=== PATIENT | female | born 1945 | race Caucasian/White ===

== ENCOUNTER 2017-04-14 08:00 | Outpatient (CLI) | payer OTHER ==
[2017-04-14 13:18] LABS: ALBUMIN/GLOBULIN RATIO 1.1 (1.0-2.2); BILIRUBIN,TOTAL 0.5 mg/dL (0.2-1.0); BUN - BLOOD UREA NITROGEN 28 mg/dL (6-20); CALCIUM 11.7 mg/dL (8.5-10.3); CARBON DIOXIDE - CO2 26 mmol/L (21-32); CHLORIDE 101 mmol/L (101-111); CHOL/HDL RATIO 5.5 (<4.4); CHOLESTEROL 240 mg/dL; CREATININE 0.8 mg/dL (0.4-1.0); GFR - MDRD 71 (>89); GLUCOSE 126 mg/dL (70-100); HDL CHOLESTEROL 44 mg/dL; SODIUM 137 mmol/L (135-145); TOTAL PROTEIN 7.4 g/dL (6.7-8.2); TRIGLYCERIDES 446 mg/dL
[2017-04-14 13:38] LABS: LDL CHOLESTEROL,DIRECT 133 mg/dL
[2017-04-14 13:50] LABS: HEMOGLOBIN A1C 0.61 g/dL
== END 2017-04-14 08:01 | disposition home or self-care (01) ==
LOC: LAB.WCP 08:00
PROVIDERS: ATTEND Physician Assistant Medical
DX: E78.5 Hyperlipidemia, unspecified (principal); E11.9 Type 2 diabetes mellitus without complications; E03.9 Hypothyroidism, unspecified; Z79.899 Other long term (current) drug therapy
CPT/HCPCS: 36415; 80053; 80061; 83036; 84443

== ENCOUNTER 2017-04-17 11:25 | Outpatient (CLI) | payer OTHER | END 2017-04-17 11:26 | disposition home or self-care (01) | LOC: LAB.WCP 11:25 | PROVIDERS: ATTEND Physician Assistant Medical | DX: Z71.9 Counseling, unspecified (principal) | CPT/HCPCS: 36415; 86803 ==

== ENCOUNTER 2017-04-30 11:09 | Outpatient (CLI) | payer OTHER ==
[2017-04-30 20:54] LABS: THYROID STIMULATING HORMONE 2.87 uIU/mL (0.34-5.60)
== END 2017-04-30 11:10 | disposition home or self-care (01) ==
LOC: LAB.WCP 11:09
PROVIDERS: ATTEND Physician Assistant Medical
DX: E83.52 Hypercalcemia (principal); E03.9 Hypothyroidism, unspecified
CPT/HCPCS: 36415; 82306; 82310; 83970; 84439; 84443; 84481

== ENCOUNTER 2017-07-20 10:39 | Outpatient (CLI) | payer MEDICARE, OTHER ==
[2017-07-20 20:17] LABS: CALCIUM 10.3 mg/dL (8.5-10.3); PHOSPHORUS 2.4 mg/dL (2.5-4.6)
== END 2017-07-20 10:40 | disposition home or self-care (01) ==
LOC: LAB.WCP 10:39
PROVIDERS: ATTEND Internal Medicine Endocrinology, Diabetes & Metabolism
DX: E83.52 Hypercalcemia (principal); E55.9 Vitamin D deficiency, unspecified
CPT/HCPCS: 36415; 82306; 82310; 83970; 84100

== ENCOUNTER 2017-07-22 08:00 | Outpatient (CLI) | payer MEDICARE | END 2017-07-22 08:01 | disposition home or self-care (01) | LOC: LAB.WCP 08:00 | PROVIDERS: ATTEND Internal Medicine Endocrinology, Diabetes & Metabolism | DX: E55.9 Vitamin D deficiency, unspecified (principal); E83.52 Hypercalcemia | CPT/HCPCS: 82340; 82570 ==

== ENCOUNTER 2017-07-31 13:01 | Outpatient (CLI) | payer MEDICARE ==
--- NOTE | 2017-08-03 11:16 | DEXA Report ---
DEXA SCAN: 07/31/2017 CLINICAL INDICATION: Postmenopausal. TECHNIQUE: Dual energy x-ray absorptiometry (DXA) was performed on a [employer] system. Regions measured are the AP spine, femoral neck, and, if needed, forearm. COMPARISON: None. In accordance with the International Society for Clinical Densitometry (ISCD) guidelines, data from previous exams may be reanalyzed using current recommendations and techniques. This is done to allow a more accurate basis for comparison with the current study. FINDINGS The data for the lumbar spine is as follows: REGION BMD (g/cm/cm) T-SCORE Z-SCORE L1 1.063 -0.6 0.5 L2 1.143 -0.5 0.6 L3 1.224 0.2 1.2 L4 1.126 -0.6 0.4 TOTAL 1.139 -0.3 0.7 NOTE: All evaluable vertebrae are used for classification. The data for the hip is as follows: REGION BMD (g/cm/cm) T-SCORE Z-SCORE Neck 0.914 -0.9 0.4 TOTAL 0.982 -0.2 0.8 NOTE: The femoral neck or total proximal femur, whichever is lowest, is used for classification. IMPRESSION: THE WHO CLASSIFICATION BASED ON THE INTERNATIONAL REFERENCE STANDARD IS NORMAL. THE FRACTURE RISK IS NOT INCREASED. RECOMMENDATION: Patients with diagnosis of osteoporosis or osteopenia should have regular bone mineral density assessment. For those eligible for Medicare, routine testing is allowed once every 2 years. Testing frequency can be increased for patients who have rapidly progressing disease or for those who are receiving medical therapy to restore bone mass. COMMENT: World Health Organization (WHO) definitions for osteoporosis and osteopenia: NORMAL BMD: T-score at -1.0 or higher, fracture risk is low. OSTEOPENIA BMD: T-score between -1.0 and -2.5, fracture risk is increased. OSTEOPOROSIS BMD: T-score at -2.5 or lower, fracture risk high. National Osteoporosis Foundation recommends: 1. Obtain adequate dietary calcium (at least 1200 mg per day) and vitamin D (400 -800 international units per day). 2. Participate, as appropriate, in regular weightbearing and muscle- strengthening exercise. 3. Avoid tobacco use and reduce alcohol and caffeine intake. 4. For more detailed information see the website at www.NOF.org. MTDD
== END 2017-07-31 13:02 | disposition home or self-care (01) ==
LOC: DI 13:01
PROVIDERS: ATTEND Family Medicine
DX: Z13.820 Encounter for screening for osteoporosis (principal); Z78.0 Asymptomatic menopausal state
CPT/HCPCS: 77080

== ENCOUNTER 2017-09-29 08:00 | Outpatient (CLI) | payer MEDICARE ==
[2017-09-29 13:19] LABS: ALBUMIN/GLOBULIN RATIO 1.1 (1.0-2.2); BILIRUBIN,TOTAL 0.6 mg/dL (0.2-1.0); BUN - BLOOD UREA NITROGEN 17 mg/dL (6-20); CARBON DIOXIDE - CO2 24 mmol/L (21-32); CHLORIDE 107 mmol/L (101-111); CHOL/HDL RATIO 3.7 (<4.4); CHOLESTEROL 140 mg/dL; CREATININE 0.6 mg/dL (0.4-1.0); GFR - MDRD 99 (>89); GLUCOSE 124 mg/dL (70-100); HDL CHOLESTEROL 38 mg/dL; LDL/HDL RATIO 1.4 (<4.4); POTASSIUM 3.8 mmol/L (3.5-5.0); SODIUM 137 mmol/L (135-145); TRIGLYCERIDES 239 mg/dL; VLDL CHOLESTEROL 48 mg/dL
[2017-09-29 13:24] LABS: HEMOGLOBIN A1C 0.69 g/dL
== END 2017-09-29 08:01 | disposition home or self-care (01) ==
LOC: LAB.WCP 08:00
PROVIDERS: ATTEND Physician Assistant Medical
DX: E78.5 Hyperlipidemia, unspecified (principal); E11.9 Type 2 diabetes mellitus without complications; Z51.81 Encounter for therapeutic drug level monitoring; Z79.899 Other long term (current) drug therapy
CPT/HCPCS: 36415; 80053; 80061; 83036

== ENCOUNTER 2017-10-09 12:56 | Outpatient (CLI) | payer MEDICARE | END 2017-10-09 12:57 | disposition home or self-care (01) | LOC: LAB.WCP 12:56 | PROVIDERS: ATTEND Physician Assistant Medical | DX: E03.9 Hypothyroidism, unspecified (principal) | CPT/HCPCS: 36415; 84443 ==

== ENCOUNTER 2018-02-01 09:17 | Outpatient (CLI) | payer MEDICARE ==
[2018-02-01 12:40] LABS: HEMOGLOBIN A1C 0.65 g/dL; HEMOGLOBIN A1C % 6.1 % (4.6-6.2)
[2018-02-01 12:43] LABS: ALBUMIN 4.2 g/dL (3.2-5.5); ALBUMIN/GLOBULIN RATIO 1.2 (1.0-2.2); ALKALINE PHOSPHATASE 83 IU/L (42-121); ALT ALANINE AMINOTRANSFERASE 26 IU/L (10-60); AST ASPARTATE AMINOTRANSFERASE 26 IU/L (10-42); BILIRUBIN,TOTAL 0.7 mg/dL (0.2-1.0); BUN - BLOOD UREA NITROGEN 13 mg/dL (6-20); CARBON DIOXIDE - CO2 23 mmol/L (21-32); CHLORIDE 102 mmol/L (101-111); CHOL/HDL RATIO 3.2 (<4.4); CHOLESTEROL 144 mg/dL; CREATININE 0.5 mg/dL (0.4-1.0); GFR - MDRD 122 (>89); GLUCOSE 124 mg/dL (70-100); HDL CHOLESTEROL 45 mg/dL; LDL CHOLESTEROL,CALCULATED 55 mg/dL; LDL/HDL RATIO 1.2 (<4.4); SODIUM 135 mmol/L (135-145); TOTAL PROTEIN 7.6 g/dL (6.7-8.2); VLDL CHOLESTEROL 44 mg/dL
== END 2018-02-01 09:18 | disposition home or self-care (01) ==
LOC: LAB.WCP 09:17
PROVIDERS: ATTEND Family Medicine
DX: E78.5 Hyperlipidemia, unspecified (principal); E11.9 Type 2 diabetes mellitus without complications; Z51.81 Encounter for therapeutic drug level monitoring
CPT/HCPCS: 36415; 80053; 80061; 83036; 83721

== ENCOUNTER 2018-06-09 08:00 | Outpatient (CLI) | payer MEDICARE ==
[2018-06-09 13:25] LABS: BUN - BLOOD UREA NITROGEN 14 mg/dL (6-20); CARBON DIOXIDE - CO2 26 mmol/L (21-32); CHLORIDE 103 mmol/L (101-111); CHOL/HDL RATIO 3.4 (<4.4); CHOLESTEROL 140 mg/dL; CREATININE 0.7 mg/dL (0.4-1.0); GFR - MDRD 82 (>89); GLUCOSE 124 mg/dL (70-100); HDL CHOLESTEROL 41 mg/dL; LDL CHOLESTEROL,CALCULATED 58 mg/dL; LDL/HDL RATIO 1.4 (<4.4); SODIUM 137 mmol/L (135-145); VLDL CHOLESTEROL 41 mg/dL
[2018-06-09 13:27] LABS: HB2 TOTAL 14.2 g/dL; HEMOGLOBIN A1C 0.59 g/dL
== END 2018-06-09 08:01 | disposition home or self-care (01) ==
LOC: LAB.WCP 08:00
PROVIDERS: ATTEND Physician Assistant Medical
DX: E11.9 Type 2 diabetes mellitus without complications (principal); E78.5 Hyperlipidemia, unspecified; R53.83 Other fatigue
CPT/HCPCS: 36415; 80048; 80061; 83036; 83721; 84443

== ENCOUNTER 2018-07-21 13:08 | Outpatient (CLI) | payer MEDICARE ==
--- NOTE | 2018-07-22 15:58 | Mammography Report ---
Reason: SCREENING MAMMO Procedure Date: 07/21/2018 Accession Number: [id number] / [id number] Procedure: JAZMIN - Screening Mammo Dig Bilat CPT Code: FULL RESULT: EXAM: Screening Mammo Dig Bilat DATE: 07/21/2018 1:45 PM CLINICAL HISTORY: Screening mammogram TECHNIQUE: Bilateral CC and MLO views were obtained. COMPARISON: Mammogram 08/06/2016 FINDINGS: There are scattered fibroglandular densities. There are benign-appearing lymph nodes. No suspicious masses, clustered microcalcifications, or regions of architectural distortion are identified. IMPRESSION: Benign findings RECOMMENDATION: Routine annual screening unless otherwise clinically indicated. BIRADS CATEGORY 2: Benign findings STANDARD QUALIFYING STATEMENTS: 1. This examination was reviewed with the aid of Computer-Aided Detection (CAD). 2. A negative or benign imaging report should not delay biopsy if clinically suspicious findings are present. Consider surgical consultation if warrented. More than 5% of cancers are not identified by imaging. 3. Dense breasts may obscure an underlying neoplasm.
== END 2018-07-21 13:09 | disposition home or self-care (01) ==
LOC: DI 13:08
PROVIDERS: ATTEND Radiology Diagnostic Radiology
DX: Z12.31 Encounter for screening mammogram for malignant neoplasm of breast (principal)
CPT/HCPCS: 77067

== ENCOUNTER 2018-12-15 08:00 | Outpatient (CLI) | payer MEDICARE ==
[2018-12-15 12:49] LABS: ALBUMIN 3.7 g/dL (3.2-5.5); ALBUMIN/GLOBULIN RATIO 1.1 (1.0-2.2); ALKALINE PHOSPHATASE 91 IU/L (42-121); ALT ALANINE AMINOTRANSFERASE 19 IU/L (10-60); AST ASPARTATE AMINOTRANSFERASE 19 IU/L (10-42); BILIRUBIN,TOTAL 0.9 mg/dL (0.2-1.0); BUN - BLOOD UREA NITROGEN 14 mg/dL (6-20); CARBON DIOXIDE - CO2 26 mmol/L (21-32); CHLORIDE 102 mmol/L (101-111); CHOL/HDL RATIO 3.7 (<4.4); CHOLESTEROL 148 mg/dL; CREATININE 0.7 mg/dL (0.4-1.0); GFR - MDRD 82 (>89); GLUCOSE 128 mg/dL (70-100); HDL CHOLESTEROL 40 mg/dL; LDL CHOLESTEROL,CALCULATED 73 mg/dL; LDL/HDL RATIO 1.8 (<4.4); SODIUM 138 mmol/L (135-145); TOTAL PROTEIN 7.2 g/dL (6.7-8.2); VLDL CHOLESTEROL 35 mg/dL
[2018-12-15 12:53] LABS: HB2 TOTAL 14.6 g/dL; HEMOGLOBIN A1C 0.56 g/dL; HEMOGLOBIN A1C % 5.7 % (4.6-6.2)
== END 2018-12-15 23:59 | disposition home or self-care (01) ==
LOC: LAB.WCP 08:00
PROVIDERS: ATTEND Physician Assistant Medical
DX: E78.5 Hyperlipidemia, unspecified (principal); E11.9 Type 2 diabetes mellitus without complications; E03.9 Hypothyroidism, unspecified
CPT/HCPCS: 36415; 80053; 80061; 83036; 83721; 84443

== ENCOUNTER 2019-06-29 08:00 | Outpatient (CLI) | payer MEDICARE ==
[2019-06-29 12:00] LABS: BASOPHILS % (AUTO) 0.4 %; EOSINOPHILS # (AUTO) 0.1 10^3/uL (0.0-0.7); EOSINOPHILS % (AUTO) 1.5 %; LYMPHOCYTES # (AUTO) 2.4 10^3/uL (1.5-3.5); LYMPHOCYTES % (AUTO) 34.5 %; MEAN CORPUSCULAR HEMOGLOBIN 29.4 pg (27.0-31.0); MEAN CORPUSCULAR HGB CONC 32.1 g/dL (32.0-36.0); MEAN CORPUSCULAR VOLUME 91.4 fL (81.0-99.0); MEAN PLATELET VOLUME 10.5 fL (7.9-10.8); MONOCYTES # (AUTO) 0.6 10^3/uL (0.0-1.0); MONOCYTES % (AUTO) 8.7 %; NEUTROPHILS # (AUTO) 3.7 10^3/uL (1.5-6.6); NEUTROPHILS % (AUTO) 54.6 %; PLT - PLATELET COUNT 285 10^3/uL (130-450); RED BLOOD COUNT 4.77 10^6/uL (4.20-5.40); RED CELL DISTRIBUTION WIDTH 12.6 % (12.0-15.0); WHITE BLOOD COUNT 6.9 x10^3/uL (4.8-10.8)
[2019-06-29 12:28] LABS: HB2 TOTAL 15.1 g/dL; HEMOGLOBIN A1C 0.63 g/dL
[2019-06-29 12:43] LABS: ALBUMIN 4.1 g/dL (3.2-5.5); ALBUMIN/GLOBULIN RATIO 1.2 (1.0-2.2); ALKALINE PHOSPHATASE 90 IU/L (42-121); ALT ALANINE AMINOTRANSFERASE 30 IU/L (10-60); AST ASPARTATE AMINOTRANSFERASE 25 IU/L (10-42); BILIRUBIN,TOTAL 0.8 mg/dL (0.2-1.0); BUN - BLOOD UREA NITROGEN 21 mg/dL (6-20); CARBON DIOXIDE - CO2 23 mmol/L (21-32); CHLORIDE 103 mmol/L (101-111); CHOL/HDL RATIO 3.6 (<4.4); CHOLESTEROL 152 mg/dL; CREATININE 0.6 mg/dL (0.4-1.0); GFR - MDRD 98 (>89); GLUCOSE 138 mg/dL (70-100); HDL CHOLESTEROL 42 mg/dL; LDL CHOLESTEROL,CALCULATED 68 mg/dL; LDL/HDL RATIO 1.6 (<4.4); SODIUM 136 mmol/L (135-145); TOTAL PROTEIN 7.6 g/dL (6.7-8.2); VLDL CHOLESTEROL 42 mg/dL
== END 2019-06-29 23:59 | disposition home or self-care (01) ==
LOC: LAB.WCP 08:00
PROVIDERS: ATTEND Physician Assistant Medical
DX: E11.9 Type 2 diabetes mellitus without complications (principal); E78.5 Hyperlipidemia, unspecified; E03.9 Hypothyroidism, unspecified
CPT/HCPCS: 36415; 80053; 80061; 83036; 83721; 84443; 85025

== ENCOUNTER 2019-09-05 11:03 | Outpatient (CLI) | payer MEDICARE ==
--- NOTE | 2019-09-05 13:17 | Mammography Report ---
Reason: SCREENING MAMMO Procedure Date: 09/05/2019 Accession Number: [id number] / [id number] Procedure: JAZMIN - Screening Mammo w/Nayan CPT Code: FULL RESULT: EXAM: Screening Mammo w/Nayan DATE: 09/05/2019 12:03 PM CLINICAL HISTORY: Routine screening TECHNIQUE: (B) - Bilateral CC and MLO views were obtained. COMPARISON: 07/21/2018, 08/06/2016, 07/19/2015, 04/11/2014, 08/09/2012, 07/29/2012 PARENCHYMAL PATTERN: (F) - The breasts demonstrate diffuse fatty replacement bilaterally. FINDINGS: No significant interval change. There are no suspicious masses, calcifications, or areas of distortion. Several tiny nodular densities right breast appears stable. IMPRESSION: Negative examination. BI-RADS category 1. RECOMMENDATION: (ANNUAL) - Recommend routine annual screening mammography. BI-RADS CATEGORY: (1) - Negative. STANDARD QUALIFYING STATEMENTS: 1. This examination was not reviewed with the aid of Computer-Aided Detection (CAD). 2. A negative or benign imaging report should not preclude biopsy if clinically suspicious findings are present. 3. Dense breasts may obscure an underlying neoplasm. 4. This examination was reviewed with the aid of 3D breast imaging (tomosynthesis).
== END 2019-09-05 11:04 | disposition home or self-care (01) ==
LOC: DI 11:03
DX: Z12.31 Encounter for screening mammogram for malignant neoplasm of breast (principal)
CPT/HCPCS: 77063; 77067

== ENCOUNTER 2020-01-05 08:00 | Outpatient (CLI) | payer MEDICARE ==
[2020-01-05 12:42] LABS: CALCIUM 10.5 mg/dL (8.5-10.3); CREATININE 0.8 mg/dL (0.4-1.0); HB2 TOTAL 14.5 g/dL; HEMOGLOBIN A1C 0.63 g/dL; HEMOGLOBIN A1C % 6.1 % (4.6-6.2)
== END 2020-01-05 23:59 | disposition home or self-care (01) ==
LOC: LAB.WCP 08:00
PROVIDERS: ATTEND Physician Assistant Medical
DX: E11.9 Type 2 diabetes mellitus without complications (principal)
CPT/HCPCS: 36415; 80048; 83036

== ENCOUNTER 2020-07-04 10:46 | Outpatient (CLI) | payer MEDICARE ==
[2020-07-04 19:00] LABS: ALBUMIN 4.2 g/dL (3.2-5.5); ALBUMIN/GLOBULIN RATIO 1.3 (1.0-2.2); ALKALINE PHOSPHATASE 89 IU/L (42-121); ALT ALANINE AMINOTRANSFERASE 22 IU/L (10-60); AST ASPARTATE AMINOTRANSFERASE 20 IU/L (10-42); BUN - BLOOD UREA NITROGEN 16 mg/dL (6-20); CALCIUM 10.6 mg/dL (8.5-10.3); CARBON DIOXIDE - CO2 27 mmol/L (21-32); CHLORIDE 102 mmol/L (101-111); CHOL/HDL RATIO 3.4 (<4.4); CHOLESTEROL 162 mg/dL; CREATININE 0.6 mg/dL (0.4-1.0); GLUCOSE 114 mg/dL (70-100); HDL CHOLESTEROL 47 mg/dL; LDL CHOLESTEROL,CALCULATED 78 mg/dL; LDL/HDL RATIO 1.7 (<4.4); SODIUM 140 mmol/L (135-145); TOTAL PROTEIN 7.5 g/dL (6.7-8.2); VLDL CHOLESTEROL 37 mg/dL
[2020-07-04 19:05] LABS: HEMOGLOBIN A1c% 6.2 % (4.27-6.07)
== END 2020-07-04 23:59 | disposition home or self-care (01) ==
LOC: LAB.WCP 10:46
PROVIDERS: ATTEND Physician Assistant Medical
DX: E11.9 Type 2 diabetes mellitus without complications (principal)
CPT/HCPCS: 36415; 80053; 80061; 83036; 83721

== ENCOUNTER → 2020-07-18 | Outpatient (CLI) | payer MEDICARE ==
[2020-07-18 13:05] LABS: CREATININE,URINE 57.3 mg/dL; MICROALBUM/CREATININE RATIO,UR 12.2 ug/mg (<30.0); MICROALBUMIN,URINE 0.7 mg/dL (0-300.0)
== END ==
LOC: LAB.WCP 10:11
PROVIDERS: ATTEND Physician Assistant Medical
DX: E11.9 Type 2 diabetes mellitus without complications (principal)
CPT/HCPCS: 82043; 82570

== ENCOUNTER 2021-01-09 08:00 | Outpatient (CLI) | payer MEDICARE ==
[2021-01-09 12:42] LABS: CALCIUM 11.2 mg/dL (8.5-10.3); CREATININE 0.6 mg/dL (0.4-1.0); POTASSIUM 3.7 mmol/L (3.5-5.0)
[2021-01-09 12:47] LABS: ESTIMATED AVERAGE GLUCOSE 128 mg/dL (70-100); HEMOGLOBIN A1c% 6.1 % (4.27-6.07)
[2021-01-09 12:52] LABS: CREATININE,URINE 24.4 mg/dL; MICROALBUM/CREATININE RATIO,UR 16.4 ug/mg (<30.0); MICROALBUMIN,URINE 0.4 mg/dL (0-300.0)
== END 2021-01-09 23:59 | disposition home or self-care (01) ==
LOC: LAB.WCP 08:00
PROVIDERS: ATTEND Physician Assistant Medical
DX: E11.9 Type 2 diabetes mellitus without complications (principal)
CPT/HCPCS: 36415; 80048; 82043; 82570; 83036

== ENCOUNTER 2021-07-03 12:55 | Outpatient (CLI) | payer MEDICARE ==
--- NOTE | 2021-07-11 13:21 | Mammography Report ---
BILATERAL DIGITAL SCREENING MAMMOGRAM 3D/2D: 07/03/2021 CLINICAL: Routine screening. Comparison is made to exams dated: 09/05/2019 mammogram, 07/21/2018 mammogram, and 08/06/2016 mammogra m - [facility]. The tissue of both breasts is predominantly fatty. No significant masses, calcifications, or other findings are seen in either breast. There has been no significant interval change. IMPRESSION: NEGATIVE There is no mammographic evidence of malignancy. A 1 year screening mammogram is recommended. This exam was interpreted at Station ID: [id number]. NOTE: For mammograms, a report in lay terms will be sent to the patient. Approximately 15% of breast malignancies will not be visualized mammographically. In the management of a palpable breast mass, a negative mammogram must not discourage biopsy of a clinically suspicious lesion. Electronically Signed By: Courtney [email or web address]:07/10/2021 17:24:03 ACR BI-RADS Category 1: Negative 3341F PARENCHYMAL PATTERN: (F) - The breast(s) demonstrate(s) diffuse fatty replacement. BI-RADS CATEGORY: (1) - 1 RECOMMENDATION: (ANNUAL) - Recommend routine annual screening mammography. [id number] 1 year screening LATERALITY: (B)
== END 2021-07-03 12:56 | disposition home or self-care (01) ==
LOC: DI 12:55
DX: Z12.31 Encounter for screening mammogram for malignant neoplasm of breast (principal)

== ENCOUNTER 2021-07-16 08:36 | Outpatient (CLI) | payer MEDICARE ==
[2021-07-16 12:39] LABS: ALBUMIN 4.2 g/dL (3.2-5.5); ALBUMIN/GLOBULIN RATIO 1.3 (1.0-2.2); ALKALINE PHOSPHATASE 76 IU/L (42-121); ALT ALANINE AMINOTRANSFERASE 27 IU/L (10-60); AST ASPARTATE AMINOTRANSFERASE 25 IU/L (10-42); BILIRUBIN,TOTAL 0.8 mg/dL (0.2-1.0); BUN - BLOOD UREA NITROGEN 16 mg/dL (6-20); CALCIUM 10.5 mg/dL (8.5-10.3); CARBON DIOXIDE - CO2 24 mmol/L (21-32); CHLORIDE 107 mmol/L (101-111); CHOL/HDL RATIO 3.4 (<4.4); CHOLESTEROL 142 mg/dL; CREATININE 0.6 mg/dL (0.4-1.0); GFR - MDRD 98 (>89); GLUCOSE 144 mg/dL (70-100); HDL CHOLESTEROL 42 mg/dL; LDL CHOLESTEROL,CALCULATED 59 mg/dL; LDL/HDL RATIO 1.4 (<4.4); POTASSIUM 4.1 mmol/L (3.5-5.0); SODIUM 142 mmol/L (135-145); TOTAL PROTEIN 7.4 g/dL (6.7-8.2); TRIGLYCERIDES 203 mg/dL; VLDL CHOLESTEROL 41 mg/dL
[2021-07-16 12:55] LABS: ESTIMATED AVERAGE GLUCOSE 137 mg/dL (70-100); HEMOGLOBIN A1c% 6.4 % (4.27-6.07)
== END 2021-07-16 23:59 | disposition home or self-care (01) ==
LOC: LAB.WCP 08:36
PROVIDERS: ATTEND Physician Assistant Medical
DX: E11.9 Type 2 diabetes mellitus without complications (principal); E78.5 Hyperlipidemia, unspecified; I10 Essential (primary) hypertension
CPT/HCPCS: 36415; 80053; 80061; 83036; 83721

== ENCOUNTER 2021-11-14 08:00 | Outpatient (CLI) | payer MEDICARE ==
[2021-11-14 12:11] LABS: CALCIUM 10.9 mg/dL (8.5-10.3); CREATININE 0.7 mg/dL (0.4-1.0); POTASSIUM 3.8 mmol/L (3.5-5.0)
[2021-11-14 12:31] LABS: THYROID STIMULATING HORMONE 6.86 uIU/mL (0.34-5.60)
[2021-11-14 13:23] LABS: FREE T4 (FREE THYROXINE) 1.45 ng/dL (0.58-1.64)
[2021-11-14 14:37] LABS: ESTIMATED AVERAGE GLUCOSE 137 mg/dL (70-100); HEMOGLOBIN A1c% 6.4 % (4.27-6.07)
== END 2021-11-14 23:59 ==
LOC: LAB.WCP 08:00
PROVIDERS: ATTEND Physician Assistant Medical
DX: E11.9 Type 2 diabetes mellitus without complications (principal); E03.9 Hypothyroidism, unspecified
CPT/HCPCS: 36415; 80048; 83036; 84439; 84443

== ENCOUNTER 2021-12-20 11:50 | Outpatient (CLI) | payer MEDICARE ==
[2021-12-20 18:58] LABS: THYROID STIMULATING HORMONE 3.18 uIU/mL (0.34-5.60)
== END 2021-12-20 11:51 | disposition home or self-care (01) ==
LOC: LAB.N 11:50
PROVIDERS: ATTEND Physician Assistant Medical
DX: E03.9 Hypothyroidism, unspecified (principal)
CPT/HCPCS: 36415; 84443

== ENCOUNTER 2022-03-12 09:56 | Outpatient (CLI) | payer MEDICARE ==
[2022-03-12 12:24] LABS: ALBUMIN 4.1 g/dL (3.2-5.5); ALBUMIN/GLOBULIN RATIO 1.2 (1.0-2.2); ALKALINE PHOSPHATASE 97 IU/L (42-121); ALT ALANINE AMINOTRANSFERASE 21 IU/L (10-60); AST ASPARTATE AMINOTRANSFERASE 21 IU/L (10-42); BILIRUBIN,TOTAL 0.8 mg/dL (0.2-1.0); BUN - BLOOD UREA NITROGEN 21 mg/dL (6-20); CALCIUM 10.5 mg/dL (8.5-10.3); CARBON DIOXIDE - CO2 26 mmol/L (21-32); CHLORIDE 104 mmol/L (101-111); CHOLESTEROL 146 mg/dL; CREATININE 0.7 mg/dL (0.4-1.0); GFR - MDRD 82 (>89); GLUCOSE 149 mg/dL (70-100); HDL CHOLESTEROL 48 mg/dL; LDL CHOLESTEROL,CALCULATED 67 mg/dL; LDL/HDL RATIO 1.4 (<4.4); POTASSIUM 4.1 mmol/L (3.5-5.0); SODIUM 140 mmol/L (135-145); TOTAL PROTEIN 7.5 g/dL (6.7-8.2); TRIGLYCERIDES 155 mg/dL; VLDL CHOLESTEROL 31 mg/dL
[2022-03-12 13:03] LABS: ESTIMATED AVERAGE GLUCOSE 140 mg/dL (70-100); HEMOGLOBIN A1c% 6.5 % (4.27-6.07)
== END 2022-03-12 09:57 | disposition home or self-care (01) ==
LOC: LAB.N 09:56
PROVIDERS: ATTEND Physician Assistant Medical
DX: E11.9 Type 2 diabetes mellitus without complications (principal)
CPT/HCPCS: 36415; 80053; 80061; 83036; 83721

== ENCOUNTER 2022-08-12 15:19 | Outpatient (CLI) | payer MEDICARE ==
--- NOTE | 2022-08-14 10:22 | Mammography Report ---
BILATERAL DIGITAL SCREENING MAMMOGRAM 3D/2D: 08/12/2022 CLINICAL: Routine screening. Comparison is made to exams dated: 07/03/2021 mammogram, 09/05/2019 mammogram, 07/21/2018 mammogram, mammogram, and 07/19/2015 mammogram - [facility]. There are scattered areas of fibroglandular density in both breasts (category b / 25%-50% glandular t issue). No significant masses, calcifications, or other findings are seen in either breast. There has been no significant interval change. IMPRESSION: NEGATIVE There is no mammographic evidence of malignancy. A 1 year screening mammogram is recommended. Based on the Tyrer Cuzick model (a risk assessment model) the patients lifetime risk is 1.7% and her 10 year risk is 0.0%. According to the ACR, ACS, and NCCN guidelines, an annual breast MRI exam zoya g with mammogram is recommended if the patients lifetime risk is 20% or greater. This exam was interpreted at Station ID: [id number]. NOTE: For mammograms, a report in lay terms will be sent to the patient. Approximately 15% of breast malignancies will not be visualized mammographically. In the management of a palpable breast mass, a negative mammogram must not discourage biopsy of a clinically suspicious lesion. Electronically Signed By: Trey [email or web address]:08/13/2022 10:21:09 ACR BI-RADS Category 1: Negative 3341F PARENCHYMAL PATTERN: (A) - The breast(s) demonstrate(s) scattered fibroglandular densities. BI-RADS CATEGORY: (1) - 1 RECOMMENDATION: (ANNUAL) - Recommend routine annual screening mammography. [id number] 1 year screening LATERALITY: (B)
== END 2022-08-12 15:20 | disposition home or self-care (01) ==
LOC: DI 15:19
DX: Z12.31 Encounter for screening mammogram for malignant neoplasm of breast (principal)

== ENCOUNTER 2022-09-09 10:43 | Outpatient (CLI) | payer MEDICARE, OTHER ==
[2022-09-09 18:23] LABS: ALBUMIN 4.3 g/dL (3.2-5.5); ALBUMIN/GLOBULIN RATIO 1.3 (1.0-2.2); ALKALINE PHOSPHATASE 99 IU/L (42-121); ALT ALANINE AMINOTRANSFERASE 22 IU/L (10-60); AST ASPARTATE AMINOTRANSFERASE 22 IU/L (10-42); BILIRUBIN,TOTAL 0.8 mg/dL (0.2-1.0); BUN - BLOOD UREA NITROGEN 14 mg/dL (6-20); CALCIUM 10.5 mg/dL (8.5-10.3); CARBON DIOXIDE - CO2 27 mmol/L (21-32); CHLORIDE 103 mmol/L (101-111); CHOL/HDL RATIO 2.9 (<4.4); CHOLESTEROL 149 mg/dL; CREATININE 0.7 mg/dL (0.4-1.0); GFR - MDRD 81 (>89); GLUCOSE 152 mg/dL (70-100); HDL CHOLESTEROL 51 mg/dL; LDL CHOLESTEROL,CALCULATED 54 mg/dL; LDL/HDL RATIO 1.1 (<4.4); POTASSIUM 3.9 mmol/L (3.5-5.0); SODIUM 138 mmol/L (135-145); TOTAL PROTEIN 7.5 g/dL (6.7-8.2); TRIGLYCERIDES 222 mg/dL; VLDL CHOLESTEROL 44 mg/dL
[2022-09-09 18:35] LABS: THYROID STIMULATING HORMONE 4.76 uIU/mL (0.34-5.60)
[2022-09-09 20:58] LABS: ESTIMATED AVERAGE GLUCOSE 148 mg/dL (70-100); HEMOGLOBIN A1c% 6.8 % (4.27-6.07)
[2022-09-09 22:53] LABS: CREATININE,URINE 85.9 mg/dL; MICROALBUM/CREATININE RATIO,UR 18.6 ug/mg (<30.0); MICROALBUMIN,URINE 1.6 mg/dL (0-300.0)
== END 2022-09-09 10:44 | disposition home or self-care (01) ==
LOC: LAB.N 10:43
PROVIDERS: ATTEND Physician Assistant Medical
DX: E78.5 Hyperlipidemia, unspecified (principal); E11.9 Type 2 diabetes mellitus without complications; E03.9 Hypothyroidism, unspecified
CPT/HCPCS: 36415; 80053; 80061; 82043; 82570; 83036; 83721; 84443

== ENCOUNTER 2023-03-25 07:49 | Outpatient (CLI) | payer OTHER ==
[2023-03-25 08:30] LABS: CALCIUM 9.7 mg/dL (8.5-10.3); CREATININE 0.6 mg/dL (0.4-1.0)
[2023-03-25 18:42] LABS: ESTIMATED AVERAGE GLUCOSE 143 mg/dL (70-100); HEMOGLOBIN A1c% 6.6 % (4.27-6.07)
== END 2023-03-25 07:50 | disposition home or self-care (01) ==
LOC: LAB 07:49
PROVIDERS: ATTEND Physician Assistant Medical
DX: E11.9 Type 2 diabetes mellitus without complications (principal)
CPT/HCPCS: 36415; 80048; 83036

== ENCOUNTER 2023-08-13 12:55 | Outpatient (CLI) | payer OTHER ==
--- NOTE | 2023-08-14 08:23 | Mammography Report ---
BILATERAL DIGITAL SCREENING MAMMOGRAM 3D/2D WITH CLEAVAGE: 08/13/2023 CLINICAL: Routine screening. Comparison is made to exams dated: 08/12/2022 mammogram, 07/03/2021 mammogram, 09/05/2019 mammogram, mammogram, 08/06/2016 mammogram, and 07/19/2015 mammogram - [facility]. There are scattered areas of fibroglandular density in both breasts (category b / 25%-50% glandular t issue). No significant masses, calcifications, or other findings are seen in either breast. There has been no significant interval change. IMPRESSION: NEGATIVE There is no mammographic evidence of malignancy. A 1 year screening mammogram is recommended. Based on the Tyrer Cuzick model (a risk assessment model) the patients lifetime risk is 1.5% and her 10 year risk is 0.0%. According to the ACR, ACS, and NCCN guidelines, an annual breast MRI exam zoya g with mammogram is recommended if the patients lifetime risk is 20% or greater. This exam was interpreted at Station ID: [id number]. NOTE: For mammograms, a report in lay terms will be sent to the patient. Approximately 15% of breast malignancies will not be visualized mammographically. In the management of a palpable breast mass, a negative mammogram must not discourage biopsy of a clinically suspicious lesion. Electronically Signed By: Sharla [email or web address]:08/13/2023 17:26:59 letter sent: No_Letter ACR BI-RADS Category 1: Negative 3341F PARENCHYMAL PATTERN: (A) - The breast(s) demonstrate(s) scattered fibroglandular densities. BI-RADS CATEGORY: (1) - 1 Mammogram [id number] 1 year screening LATERALITY: (B)
== END 2023-08-13 12:56 | disposition home or self-care (01) ==
LOC: DI 12:55
DX: Z12.31 Encounter for screening mammogram for malignant neoplasm of breast (principal)

== ENCOUNTER 2023-09-16 08:50 | Outpatient (CLI) | payer OTHER ==
[2023-09-16 09:09] LABS: BASOPHILS % (AUTO) 0.7 %; EOSINOPHILS # (AUTO) 0.2 10^3/uL (0.0-0.7); EOSINOPHILS % (AUTO) 3.1 %; HCT - HEMATOCRIT 43.7 % (37.0-47.0); HGB - HEMOGLOBIN 14.3 g/dL (12.0-16.0); LYMPHOCYTES # (AUTO) 1.8 10^3/uL (1.5-3.5); LYMPHOCYTES % (AUTO) 31.1 %; MEAN CORPUSCULAR HEMOGLOBIN 29.5 pg (27.0-31.0); MEAN CORPUSCULAR HGB CONC 32.7 g/dL (32.0-36.0); MEAN CORPUSCULAR VOLUME 90.1 fL (81.0-99.0); MEAN PLATELET VOLUME 9.5 fL (7.9-10.8); MONOCYTES # (AUTO) 0.4 10^3/uL (0.0-1.0); MONOCYTES % (AUTO) 7.5 %; NEUTROPHILS # (AUTO) 3.4 10^3/uL (1.5-6.6); NEUTROPHILS % (AUTO) 57.4 %; PLT - PLATELET COUNT 287 10^3/uL (130-450); RED BLOOD COUNT 4.85 10^6/uL (4.20-5.40); RED CELL DISTRIBUTION WIDTH 12.8 % (12.0-15.0); WHITE BLOOD COUNT 5.9 x10^3/uL (4.8-10.8)
[2023-09-16 09:22] LABS: CREATININE,URINE 24.8 mg/dL; MICROALBUM/CREATININE RATIO,UR 36.3 ug/mg (<30.0); MICROALBUMIN,URINE 0.9 mg/dL
[2023-09-16 09:26] LABS: ALBUMIN 4.3 g/dL (3.2-5.5); ALBUMIN/GLOBULIN RATIO 1.6 (1.0-2.2); ALKALINE PHOSPHATASE 102 IU/L (42-121); ALT ALANINE AMINOTRANSFERASE 17 IU/L (10-60); AST ASPARTATE AMINOTRANSFERASE 15 IU/L (10-42); BILIRUBIN,TOTAL 0.6 mg/dL (0.2-1.0); BUN - BLOOD UREA NITROGEN 17 mg/dL (6-20); CALCIUM 10.5 mg/dL (8.5-10.3); CARBON DIOXIDE - CO2 26 mmol/L (21-32); CHLORIDE 104 mmol/L (101-111); CHOL/HDL RATIO 3.5 (<4.4); CHOLESTEROL 138 mg/dL; CREATININE 0.7 mg/dL (0.6-1.3); GFR - MDRD 81 (>89); GLUCOSE 166 mg/dL (74-104); HDL CHOLESTEROL 40 mg/dL; LDL CHOLESTEROL,CALCULATED 50 mg/dL; LDL/HDL RATIO 1.3 (<4.4); POTASSIUM 3.8 mmol/L (3.5-4.5); SODIUM 138 mmol/L (135-145); TRIGLYCERIDES 238 mg/dL (48-352); VLDL CHOLESTEROL 48 mg/dL
[2023-09-16 09:40] LABS: THYROID STIMULATING HORMONE 4.31 uIU/mL (0.34-5.60)
[2023-09-16 10:37] LABS: ESTIMATED AVERAGE GLUCOSE 140 mg/dL (70-100); HEMOGLOBIN A1c% 6.5 % (4.27-6.07)
== END 2023-09-16 08:51 | disposition home or self-care (01) ==
LOC: LAB 08:50
PROVIDERS: ATTEND Physician Assistant Medical
DX: E11.9 Type 2 diabetes mellitus without complications (principal); E03.9 Hypothyroidism, unspecified; J30.9 Allergic rhinitis, unspecified
CPT/HCPCS: 36415; 80053; 80061; 82043; 82570; 83036; 83721; 84443; 85025

== ENCOUNTER 2024-03-16 08:29 | Outpatient (CLI) | payer OTHER ==
[2024-03-16 12:11] LABS: ESTIMATED AVERAGE GLUCOSE 148 mg/dL (70-100); HEMOGLOBIN A1c% 6.8 % (4.27-6.07)
[2024-03-16 12:19] LABS: ALBUMIN 4.2 g/dL (3.2-5.5); ALBUMIN/GLOBULIN RATIO 1.6 (1.0-2.2); ALKALINE PHOSPHATASE 96 IU/L (42-121); ALT ALANINE AMINOTRANSFERASE 16 IU/L (10-60); AST ASPARTATE AMINOTRANSFERASE 14 IU/L (10-42); BILIRUBIN,TOTAL 0.7 mg/dL (0.2-1.0); BUN - BLOOD UREA NITROGEN 20 mg/dL (6-20); CALCIUM 10.7 mg/dL (8.5-10.3); CARBON DIOXIDE - CO2 28 mmol/L (21-32); CHLORIDE 104 mmol/L (101-111); CHOL/HDL RATIO 3.3 (<4.4); CHOLESTEROL 134 mg/dL; CREATININE 0.7 mg/dL (0.6-1.3); GFR - MDRD 81 (>89); GLUCOSE 162 mg/dL (74-104); HDL CHOLESTEROL 41 mg/dL; LDL CHOLESTEROL,CALCULATED 52 mg/dL; LDL/HDL RATIO 1.3 (<4.4); SODIUM 138 mmol/L (135-145); TOTAL PROTEIN 6.9 g/dL (6.4-8.9); TRIGLYCERIDES 204 mg/dL (48-352); VLDL CHOLESTEROL 41 mg/dL
== END 2024-03-16 08:30 | disposition home or self-care (01) ==
LOC: LAB.N 08:29
PROVIDERS: ATTEND Physician Assistant Medical
DX: E11.9 Type 2 diabetes mellitus without complications (principal)
CPT/HCPCS: 36415; 80053; 80061; 83036; 83721

== ENCOUNTER 2024-07-14 09:04 | Outpatient (CLI) | payer OTHER ==
[2024-07-14 12:44] LABS: CALCIUM 10.6 mg/dL (8.5-10.3); CREATININE 0.7 mg/dL (0.6-1.3)
[2024-07-14 12:54] LABS: ESTIMATED AVERAGE GLUCOSE 146 mg/dL (70-100); HEMOGLOBIN A1c% 6.7 % (4.27-6.07)
== END 2024-07-14 09:05 | disposition home or self-care (01) ==
LOC: LAB.N 09:04
PROVIDERS: ATTEND Physician Assistant Medical
DX: E11.9 Type 2 diabetes mellitus without complications (principal); Z13.9 Encounter for screening, unspecified
CPT/HCPCS: 36415; 80048; 83036